=== PATIENT | female | born 1945 | race Caucasian/White ===

== ENCOUNTER 2023-07-24 15:58 | Emergency (ER) | payer OTHER, SELFPAY ==
[2023-07-24 16:08] VITALS: BP 135/98
--- NOTE | 2023-07-24 16:43 | ED.GENMED ---
History of Present Illness
<Danay Gee PA-C - Last Filed: 07/24/23 20:31>
General
Chief Complaint: Musculo-Skeletal Complaint
Source: patient and family
Exam Limitations: none
Time Seen by Provider: 07/24/23 16:14
Nursing documentation reviewed up to this point in time: agreed with
Travel History
Have you had any contact with someone who has COVID-19?: No
Do you have any symptoms of coronavirus? Fever > 100 degrees, chills, cough, shortness of breath, sore throat, loss of taste or smell, muscle aches, or headache?: No
History of Present Illness
History of Present Illness:
77-year-old female with a past medical history of hypertension, bilateral knee replacement, bilateral shoulder replacement presenting to emergency department today with left elbow pain and right ankle pain following a fall. She states that she was
in emergency today when she was walking to show, tripped over the curb, and fell onto her left side of her ankle. She denies hitting her head, denies loss of consciousness, denies nausea or vomiting. She does not take any blood thinners. She
denies any shoulder pain, neck pain, back pain. Denies any abdominal pain, difficulty breathing, chest pain. She has seen [facility] orthopedics previously in the past for her shoulder and ankle replacements but is requesting [facility] follow-up as
well. Patient denies any paresthesias, any open lacerations. Patient denies headache.
Review of Systems
<Danay Gee PA-C - Last Filed: 07/24/23 20:31>
Review of Systems
All Other Systems: ROS reviewed and negative except as documented in HPI and ROS
Phy Exam
<Danay Gee PA-C - Last Filed: 07/24/23 20:31>
Physical Exam
Physical Exam:
Vitals: Vital signs are stable
General: Patient is well-appearing in no acute distress
Head: normocephalic, atraumatic
Cardiac: Regular rate, no tenderness palpation of the external chest wall, no crepitus
Pulm: Normal respiratory effort
Abdomen: No abdominal tenderness, no areas of ecchymosis.
Peripheral Vascular: 2+ radial, ulnar, and brachial pulses bilaterally
Musculoskeletal: Tenderness palpation the left olecranon, surrounding soft tissue swelling overlying the left olecranon. No left clavicular tenderness, no left shoulder joint tenderness. Cap refill less than 2 seconds bilaterally. Sensation
intact. No tenderness palpation of the right elbow. Significant soft tissue swelling overlying hematoma seen at the right lateral malleolus. 2+ dorsalis pedis/posterior tibial pulses right. Patient seen spontaneously moving cervical spine, no
cervical spine tenderness.
Course
Terralt;Danay Gee PA-C - Last Filed: 07/24/23 20:31>
Orders/Labs/Results
Orders:
Orders
07/24/23 16:12
CR Ankle - Right Min 3 Views * Urgent
Comment:
Reason For Exam: fall, pain
CR Elbow - Left Min 3 Views Urgent
Comment:
Reason For Exam: fall, pain
07/24/23 17:05
Sling Left-Treatment ONCE
boot [Ortho Boot Right- Treatment] ONCE
Short or tall?: Short
07/24/23 17:34
Hydrocodone 5/APAP 325 [[place] 5/325] 1 tablet PO NOW STA
Vital Signs
Initial and Last Documented VS:
Initial Vital Signs
Temp Pulse Resp BP Pulse Ox
97.7 F 73 16 135/98 95
07/24/23 16:08 07/24/23 16:08 07/24/23 16:08 07/24/23 16:08 07/24/23 16:08
Last Documented Vital Signs
Temp Pulse Resp BP Pulse Ox
97.7 F 73 16 135/98 95
07/24/23 16:08 07/24/23 16:08 07/24/23 16:08 07/24/23 16:08 07/24/23 16:08
<Rajesh Sheets MD - Last Filed: 07/24/23 20:46>
Orders/Labs/Results
Orders:
Orders
07/24/23 16:12
CR Ankle - Right Min 3 Views * Urgent
Comment:
Reason For Exam: fall, pain
CR Elbow - Left Min 3 Views Urgent
Comment:
Reason For Exam: fall, pain
07/24/23 17:05
Sling Left-Treatment ONCE
boot [Ortho Boot Right- Treatment] ONCE
Short or tall?: Short
07/24/23 17:34
Hydrocodone 5/APAP 325 [[place] 5/325] 1 tablet PO NOW STA
Vital Signs
Initial and Last Documented VS:
Initial Vital Signs
Temp Pulse Resp BP Pulse Ox
97.7 F 73 16 135/98 95
07/24/23 16:08 07/24/23 16:08 07/24/23 16:08 07/24/23 16:08 07/24/23 16:08
Last Documented Vital Signs
Temp Pulse Resp BP Pulse Ox
97.7 F 73 16 135/98 95
07/24/23 16:08 07/24/23 16:08 07/24/23 16:08 07/24/23 16:08 07/24/23 16:08
Procedures
<Danay Gee PA-C - Last Filed: 07/24/23 20:31>
Splint Check
Splint checked by provider?: Yes
Circulation/Movement/Sensation post splint application: brisk cap refill, full sensation and pulses intact
Splinting/Sling Placement
Left Arm:
Procedure completed by: Danay Gee PA-C
Pre-splint extermity exam: neurovascular intact
Type of splint: posterior long arm
Splint material: fiberglass
Splint checked by provider?: Yes
Type of sling: shoulder immobilizer (sling)
Normal distal neurovascular exam?: Yes
<NATHAN Crane Last Filed: 07/24/23 20:31>
MDM/Problems Addressed
Differential Diagnosis Includes:
Differentials includes olecranon fracture, right ankle sprain, right ankle fracture, musculoskeletal sprain/strain
MDM/Problems Addressed:
left elbow pain
right ankle pain
Chronic conditions affecting care: HTN
Acute Exacerbation and/or Progression of Chronic Illness: HTN
<NATHAN Crane Last Filed: 07/24/23 20:31>
*Pulse Oximetry
Patient hypoxic: no
*Critical Care Note
Total Time (30-74mins, 75-104mins- exclusive of procedures): Not Applicable
Data Reviewed
Review of Other/Old Records Reveals: Records (No previous records in [facility] to review)
Source: patient, records and family
<NATHAN Crane Last Filed: 07/24/23 20:31>
Patient Management
Escalation/DeEscalation of care consider admission/obs:
This is a 77-year-old female with a past medical history of hypertension, bilateral shoulder replacement sent to emergency department today with right ankle pain and left elbow pain following a fall. She denies any other injuries, denies head
trauma, denies loss of consciousness, denies numbness or tingling, denies shoulder pain, abdominal pain, chest pain, shortness of breath. Her x-ray revealed a small cortical avulsion fracture of the dorsal talar head on the right, and a left
displaced intra-articular fracture of the left olecranon. Her right ankle was placed in a short leg Ortho boot, and her left arm was placed in posterior long-arm splint. She was seen by [facility] orthopedics previously who did her joint
replacements, I spoke to Dr. Tru Baker from [facility] who will see patient in office in the coming days. Patient was given biking for pain control, advised patient to try to use ibuprofen acetaminophen alternating for pain control, and to only
use oxycodone tablet for breakthrough pain.
ED Attending Note
<Danay Gee PA-C - Last Filed: 07/24/23 20:31>
-
Portions of this chart may have been created with voice recognition software.� Occasional wrong word or��sound alike� substitutions may have occurred due to the inherent limitations of voice recognition software.
<Rajesh Sheets MD - Last Filed: 07/24/23 20:46>
ED Attending Note
I performed the substantive portion of visit, reviewed & personally made and approve the management plan that is documented in note by myself or LACY.: Yes
I performed a history and physical exam of patient and discussed management with resident, I reviewed resident's note and agree with documented findings and plan of care.: Yes
ED Attending Note:
Patient tripped in a hole and fell in [facility]. Complaining of right ankle and left elbow pain. No head injury or other complaints. No thinners.
On exam patient is nontoxic in no distress. Normocephalic atraumatic. Neck nontender. No chest wall tenderness. Pelvis is stable. Right ankle with swelling and tenderness laterally. No medial tenderness. Achilles intact. Negative fifth
metatarsal. Swelling over the left olecranon. Forearm proximal arm all within normal limits.
X-rays show a small chip fracture of the talus and a olecranon fracture. She fracture can be treated with a cast boot. Olecranon fracture will need surgery. Discussed with orthopedics. Splint placed and close follow-up
Discharge Plan
Departure
Patient Disposition: Home (Routine Discharge)
Date of Disposition: 07/24/23
Time of Disposition: 17:38
Patient with high blood pressure during this ER visit?: Yes
Condition: Good
Discharge Problem:
Closed olecranon fracture, Fracture of tarsal bone of right foot
Instructions: Ankle Fracture (DC), Elbow fracture, Splint Care
Prescriptions:
New
oxycodone 5 mg capsule
5 mg PO Q8H PRN (Reason: Pain) Qty: 8 0RF
Referrals:
Radha Upton MD [Family Provider] -
Tru Baker MD [Active] - Call in 1-3 days for appt
Activity Restrictions/Additional Instructions:
Please keep your splint dry, you can place it into a plastic bag or trash bag when showering. Please keep the sling on when walking, but when going to bed, or at rest, you can take it off.
Please follow up with Dr. Baker, please call the office tomorrow for an appointment.
Please return to the ER should you experience loss of sensation in your arm, worsening pain, numbness or tingling, extensive redness, or other concerning signs or symptoms.
You can alternate acetaminophen and ibuprofen for pain control. For breakthrough pain, you can take one oxycodone tablet every 8 hours as need.
Interventions
Interventions:
*General Assessment Last Done: 07/24/23 16:08
*ED COVID-19 Vaccine History Last Done: 07/24/23 16:08
*Nursing Disposition Last Done: 07/24/23 18:13
ED-Musculoskeletal Assessment Last Done: 07/24/23 16:34
Discharge Date and Time
Discharge Date/Time: 07/24/23 18:13
[2023-07-24] MEDS: NORCO 5/325 1 TABLET PO (17:39)
== END 2023-07-24 18:13 | disposition home or self-care (01) ==
LOC: EMR 15:58
PROVIDERS: EMERGENCY PHYSICIAN Emergency Medicine; FAMILY PHYSICIAN Internal Medicine
DX: S52.032A Displaced fracture of olecranon process with intraarticular extension of left ulna, initial encounter for closed fracture (principal); S92.121A Displaced fracture of body of right talus, initial encounter for closed fracture; W18.09XA Striking against other object with subsequent fall, initial encounter; I10 Essential (primary) hypertension
CPT/HCPCS: 99283; 29105; 73080; 73610